=== PATIENT | male | born 1990 | race Caucasian/White ===

== ENCOUNTER 2019-02-14 13:08 | Emergency (ER) | payer BC ==
[2019-02-14 13:14] VITALS: TEMP 98.3; BMI 29.7
--- NOTE | 2019-02-14 13:51 | PDOC ---
History of Present Illness - General Chief Complaint: Chest Pain Stated Complaint: CHEST PAIN, COLD SX Time Seen by Provider: 02/14/19 13:18 History Source: Patient Exam Limitations: No Limitations - History of Present Illness Initial Comments: HPI: 28 y/o male presenting to [facility] complaining of left sided chest tightness with radiation to the left arm that started after taking Theraflu. Associated sensation of shortness of breath; described as sensation that he cannot take a deep breath. Reports another episode at approx. 1am this morning that spread across both sides of the anterior chest wall. 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 No chest pain present at the time of interview. Denies coughing or sneezing. Pt has been experiencing subjective fevers, diaphoresis, generalized headache, generalized body aches since Wednesday. Taking OTC Motrin and Theraflu for symptom relief. No recent antibiotic usage or international travel. 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 Roommate has URI symptoms that started this morning. Social Hx: - EtOH: drinks every other day, none in past 24 hours - Tobacco: Former smoker, stopped 3 weeks ago - Street Drugs: Infrequent marijuama usage (last on Wednesday) Medical Hx: - Benign heart murmur diagnosed at age 11, unwent outpatient workup and told everything was normal, cannot recall further details Surgical Hx: - Hydrocele operation at age 18 Family Hx: - Father s/p MS at age 41 Review of Systems: In addition to that documented in the HPI above, the additional ROS was obtained : Constitutional- Endorses fevers and chills Head- Denies vision changes ENMT- Denies sore throat CV- Per HPI Resp- Per HPI GI- Denies abdominal pain, vomiting, or diarrhea - Denies painful urination, hematuria MSK- Denies recent trauma Skin- Denies new rashes Neuro- Endorses resolved parenthesis in left arm. Endocrine- Denies polyuria Heme- Denies bleeding or bruising Physical Examination: Vital signs and nursing notes reviewed. Constitutional- Well-developed, well-nourished adult male in no acute distress or obvious discomfort. Observed ambulating through the department unassisted without obvious difficulty. Found semi-fowlers on hospital bed. Answered all questions appropriately and completely. Head- Normocephalic. No obvious external signs of trauma. Eyes- Sclerae white. Neck- Supple, trachea is midline. Cardiovascular / Chest- Regular rate and regular rhythm. 2/5 Systolic crescendo murmur loudest with expiration. No rubs, clicks, or gallops. Peripheral pulses- radial pulses full. No chest wall tenderness to palpation or with movement of left arm. Respiratory- Breathing unlabored. Speaking in complete sentences without pausing for breath. Equal chest rise and fall. Clear to auscultation bilaterally. No stridor, no wheezing, no rhonchi. Gastrointestinal- abdomen is soft, non-tender, non-distended. Neuro- Alert and oriented x4. Moving all four extremities spontaneously. Skin- Warm, dry, and intact. Psych- Affect- appropriate. Mood- normal. Speech was non-labored, non- pressured. MDM: 28 y/o male presenting with viral symptoms with multiple episodes of chest pain. Afebrile. Vitals unremarkable for hypotension or tachycardia. Physical exam as described above. EKG from showed inverted T waves in V1 and V2. No flipped T waves on V2 noted on triage EKG. Suspect likely MSK pain, but will evaluate further given father's MS history <age 65 and smoking history. Ordered Motrin for symptom relief. 14 Feb 2019 15:08 PM Noted elevated troponin. Low suspicion for STEMI, rather suspect myocarditis vs endocarditis. Possible NSTEMI. Page sent for Dr. Montes through office answering service. Awaiting call back. 14 Feb 2019 16:03 PM Telephone discussion with Dr. Montes. Verbally appraised of the pts HPI, ED course, and current plan of management. Requested CK w/ index be added to initial troponin sample and Echo. Limited POCUS Echo performed. No pericardial effusion. Concentric LV squeeze. No significant RV dilation but view was limited. Pt administered ASA. Will obtain two hour delta troponin. Case again discussed with Dr. Montes. Limited availability of Echo at this facility and [facility]. Agreed pt would likely be served better by transfer to tertiary care facility with advanced cardiac care. Discussed with pt , who agreed to transfer. Requested [facility]. 14 Feb 2019 16:09 PM Pt accepted as transfer pt to [facility] under attending Dr. Teague. Telephone discussion with nuclear medical technologist Dr. Ochoa. Initial and repeat EKG faxed to transfer center. 14 Feb 2019 16:49 PM Noted repeat troponin with upward trend. Values discussed with Dr. Ochoa. Suggested story still consistent with myocarditis. Did not want Heparin or Plavix started. Tuan Ram M.D., PGY2 Emergency Medicine Resident Past History - Past Medical History Allergies/Adverse Reactions: Allergies Allergy/AdvReac Type Severity Reaction Status Date / Time No Known Allergies Allergy Verified 02/14/19 13:10 Home Medications: Ambulatory Orders D-Methorphan/PE/Acetaminophen [Theraflu Expressmax Cold-Cough] PO ASDIR Cardiac Disorders: Yes (HEART MURMUR) COPD: No - Psycho Social/Smoking Cessation Hx Smoking History: Former smoker Have you smoked in the past 12 months: Yes Information on smoking cessation initiated: Yes Hx Alcohol Use: (3-4x/week) *Physical Exam - Vital Signs Last Vital Signs Temp Pulse Resp BP Pulse Ox 98.3 F 73 18 125/89 100 02/14/19 13:08 02/14/19 13:08 02/14/19 13:08 02/14/19 13:08 02/14/19 13:08 ED Treatment Course - LABORATORY CBC & Chemistry Diagram: 02/14/19 13:55 02/14/19 13:55 - RADIOLOGY Radiology Studies Ordered: Category Date Time Status CHEST PA & LAT [RAD] Stat Radiology 02/14/19 13:50 Ordered Discharge - Discharge Information Problems reviewed: Yes Clinical Impression/Diagnosis: Elevated troponin Chest pain Qualifiers: Chest pain type: unspecified Qualified Code(s): R07.9 - Chest pain, unspecified Condition: Stable Disposition: TRANSFER ACUTE CARE/OTHER HOSP - Follow up/Referral - Patient Discharge Instructions - Post Discharge Activity - Transfer to Acute Care Facility Receiving Facility Name: [facility] Accepting Physician:: Dr. Teague Transfer Comment: Case discussed with nuclear medical technologist, Dr. Ochoa.
[2019-02-14] MEDS ORDERED: IBUPROFEN 600 MG TABLET (FP) PO ONE ×2 (13:53→14:01)
[2019-02-14 14:20] LABS: BASO % 0.2 % (0-2.0); EOS % 0.1 % (0-4.5); HEMATOCRIT 39.3 % (35.4-49); HEMOGLOBIN 13.1 GM/dl (11.7-16.9); LYMPH % 7.1 % (8-40); MCH 29.9 pg (25.7-33.7); MCHC 33.5 g/dl (32.0-35.9); MEAN CELL VOLUME 89.2 fl (80-96); MEAN PLT VOLUME 8.2 fl (7.5-11.1); MONO % 11.4 % (3.8-10.2); NEUT % 81.2 % (42.8-82.8); PLATELET COUNT 194 K/MM3 (134-434); RDW 11.7 % (11.9-15.9); WHITE BLOOD COUNT 9.1 K/mm3 (4.0-10.8)
[2019-02-14 14:27] LABS: BILIRUBIN,TOTAL 0.6 mg/dl (0.2-1); CALCIUM 8.9 mg/dl (8.5-10); CREATININE 0.8 mg/dl (0.55-1.3); POTASSIUM 3.5 mmol/L (3.5-5.1); TOT PROT 7.3 g/dl (6.4-8.2)
--- NOTE | 2019-02-14 15:27 | PDOC ---
Attending Attestation - Resident Resident Name: Tuan Ram - ED Attending Attestation I have performed the following: I have examined & evaluated the patient, The case was reviewed & discussed with the resident, I agree w/resident's findings & plan - HPI HPI: 02/14/19 15:22 Healthy 28-year-old male with history of heart murmur worked up in the past and benign without other significant past medical history presents from urgent care for evaluation of chest pain in the setting of URI symptoms. Patient has had about 2 days of nasal congestion with dry cough, subjective fevers and chills and myalgias. Patient has been self treating with TheraFlu and NyQuil, but noted that he had 3 episodes of chest tightness over the last 24 hours. 2 of these episodes lasted about 1 hour following TheraFlu dose, the other occurred during the night. There was some sweating with the chest tightness but no palpitations or shortness of breath or lightheadedness/syncope. Patient presented to urgent care today, where an EKG showed T wave inversions in leads V1 and V2, so he was referred to the emergency department. Patient is symptom-free at this time other than mild nasal congestion, denies any exertional chest pain or dyspnea, has no exercise limitations. 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 No family history of DVT/PE, father had RI at age 40. Patient denies any excessive alcohol or tobacco intake, he admits to doing cocaine less than 5 times in the past, most recently about 2 weeks ago but nothing in the last 72 hours. - Physicial Exam PE: 02/14/19 15:25 Vital signs normal Patient is well-appearing speaking full sentences in no acute distress Oropharynx clear, neck supple, no JVD Heart is regular with 2 out of 6 systolic ejection murmur heard throughout the precordium Lungs are clear Abdomen benign No edema or calf tenderness - Critical Care Time Total Critical Care Time: 50 Critical Care Statement: The care of this patient involved high complexity decision making to prevent further life threatening deterioration of the patient 's condition and/or to evaluate & treat vital organ system(s) failure or risk of failure. - Medical Decision Making 02/14/19 15:26 Healthy 28-year-old male presents with chest tightness in the setting of 2 days of URI symptoms. Hemodynamically stable here without other red flags on history or physical exam, nonexertional chest pain with low heart score but with some risk factors given family history and cocaine use, pain also occurred after TheraFlu ingestion, which is a phenylephrine-containing medication. Question vasospasm versus bronchitis, rule out myocarditis. Labs sent, confirming elevated troponin of 6.14 Chest x-ray is normal with normal cardiac size EKG here shows incomplete right bundle branch block with isolated T wave inversion in V1 Discussed disposition with cardiology, Dr. Montes on-call. Recommend echo, telemetry admission. 02/14/19 15:58 Bedside [id number] ultrasound shows no large pericardial effusion. Echo not immediately available, discussed with Dr. Montes of cardiology who recommends transfer. Patient and family requesting [facility]. 02/14/19 17:02 trop trending up slighlty to 8, ekg unchanged and not acutely ischemic. flu pending, but negative at urgent care. pt clinically unchanged, HD stable. Accepted for transfer to [facility] [place] (Dr. Polk), EMS at bedside. Heart Score/ECG Review #1 ECG reviewed & interpreted by me at: 13:16 General ECG Interpretation: Sinus Rhythm, Normal Rate (59), Normal Intervals ( qtc 378, irbbb with QRS 108), No acute ischemic changes Compared to previous ECG there are: No significant change (c/w urgent care EKG from 12:12, TWI V2 resolved)
--- NOTE | 2019-02-14 15:29 | EKG ---
Test Reason : Blood Pressure : / mmHG Vent. Rate : 059 BPM Atrial Rate : 059 BPM P-R Int : 120 ms QRS Dur : 108 ms QT Int : 382 ms P-R-T Axes : 047 080 044 degrees QTc Int : 378 ms SINUS BRADYCARDIA OTHERWISE NORMAL ECG NO PREVIOUS ECGS AVAILABLE Confirmed by Orlando Siddiqui ([id number]) on 02/14/2019 3:28:58 PM Referred By: PHILIPPE CRESPO Confirmed By:Orlando Siddiqui
[2019-02-14] MEDS ORDERED: ASPIRIN 81 MG CHEWABLE TABLETS PO ONE (15:52)
[2019-02-14] MEDS ORDERED: ASPIRIN 81 MG CHEWABLE TABLETS ONE (15:54)
[2019-02-14 17:05] VITALS: BP 125/92; PULSE 76
--- NOTE | 2019-02-15 11:13 | EKG ---
Test Reason : Blood Pressure : / mmHG Vent. Rate : 073 BPM Atrial Rate : 073 BPM P-R Int : 126 ms QRS Dur : 112 ms QT Int : 372 ms P-R-T Axes : 043 081 032 degrees QTc Int : 409 ms NORMAL SINUS RHYTHM NORMAL ECG WHEN COMPARED WITH ECG OF 14-FEB-2019 13:16, NO SIGNIFICANT CHANGE WAS FOUND Confirmed by EVIE UGARTE MD ([id number]) on 02/15/2019 11:12:28 AM Referred By: PHILIPPE CRESPO Confirmed By:EVIE UGARTE MD
== END 2019-02-14 17:00 | disposition short-term general hospital (02) ==
LOC: FER 13:08
DX: R07.9 Chest pain, unspecified (principal); R79.89 Other specified abnormal findings of blood chemistry
CPT/HCPCS: 36415; 71046-TC-FY; 80053; 82550; 82553; 84484; 85025; 85651; 86140; 87804; 93005; 99285-25